=== PATIENT | female | born 1975 | race Caucasian/White ===

== ENCOUNTER 2017-03-16 09:10 | Emergency (ER) | payer OTHER ==
[~2017-03-16] VITALS: Ht 167.6 cm; Wt 99.8 kg
[~2017-03-16 09:10] MED LIST: ADVIL200 M1 PO; MULTIVITAMIN1 TAB PO; NEXIUM 24HR20 MG PO; PROBIOTIC FORM1 EACH PO; ZITHROMAX Z-PA250 M1 PO; ZYRTEC-D 12HR 51 TER PO
[2017-03-16 09:38] LABS: ABSOLUTE BASOPHIL COUNT 0.1 /CUMM (0.0-0.2); ABSOLUTE EOSINOPHIL COUNT 0.2 /CUMM (0.0-0.7); ABSOLUTE GRANULOCYTE CT 9.6 /CUMM (1.4-6.5); ABSOLUTE LYMPH COUNT 4.6 /CUMM (1.2-3.4); ABSOLUTE MONOCYTE COUNT 0.6 /CUMM (0.10-0.60); BASOPHIL % 0.5 % (0.0-2.0); EOSINOPHIL % 1.2 % (0-5); GRANULOCYTE % 63.7 % (42.2-75.2); HEMATOCRIT 42.5 % (37-47); MEAN CORPUSCULAR HGB 29.2 PG (27.0-31.0); MEAN CORPUSCULAR HGB CONC 33.4 G/DL (33.0-37.0); MEAN CORPUSCULAR VOLUME 87.5 FL (81.0-99.0); MEAN PLATELET VOLUME 7.9 FL (7.4-10.4); PLATELET COUNT 314 /CUMM (130-400); RBC DISTRIBUTION WIDTH 14.4 % (11.5-14.5); RED BLOOD CELL CT 4.85 /CUMM (4.20-5.40)
--- NOTE | 2017-03-16 11:11 | ED GI/GU/ABDOMINAL COMPLAINT ---
History of Present Illness General Chief Complaint: Abdominal Pain/Flank Pain Stated Complaint: "SEVERE ABD PAIN, I THINK ITS MY GALLBLADDER" Source: patient, old records Exam Limitations: no limitations Vital Signs & Intake/Output Vital Signs & Intake/Output Vital Signs Date Time Temp Pulse Resp B/P B/P Pulse O2 O2 Flow FiO2 Mean Ox Delivery Rate 03/16 1331 96.4 97 18 133/81 98 Room Air 03/16 1320 99 Room Air 03/16 1123 97.2 97 18 138/85 99 03/16 0920 97.7 107 15 122/86 99 Room Air Room Air Allergies Coded Allergies: Penicillins (Mild, YEAST INFECTION 03/16/17) Reconcile Medications Bacillus Coagulans/Inulin (Probiotic Formula Capsule) 1 BILLION CELL-250 MG CAPSULE 1 TAB PO D HEALTH SUPPLEMENT (Reported) Ibuprofen (Advil) 200 MG CAPSULE 3 TAB PO Q4-6 PRN PRN PAIN SCALE 4-6 ( MODERATE) (Reported) Loratadine/Pseudoephedrine (Claritin-D 12 Hour Tablet) 5 MG-120 MG TAB.ER.12H 1 TAB PO BID ALLERGIES (Reported) Omeprazole 20 MG CAPSULE.DR 1 CAP PO DAILY ACID REFLUX (Reported) Triage Note: PT TO ED FOR C/C OF RUQ ABD PAIN THAT RADIATES AROUND TO THE BACK. PT HAD SIMILAR EPISODE TWO DAYS AGO, AND THEN PAIN SUBSIDED. TODAY AT 0700 PAIN WOKE PT UP OUT OF SLEEP. SOME NAUSEA WITHOUT VOMITING. DENIES S/S. Triage Nurses Notes Reviewed? yes ? N Is pt currently ? No HPI: 41F PMH tubal ligation, obesity presenting with 3 days of intermittent severe RUQ pain. Pain occurring and lasting for several hours then self-resolving, 10/ 10 this morning, woke her up from sleep, not timed with meals. Eats a low fat diet, not on OCP, non-smoker. Has nausea but no vomiting. Denies fever, chills , diarrhea, dysuria, constipation, trauma. No jaundice noted. Normal BM this morning, last meal last night (salmon and broccoli). Past History Travel History Traveled to [place] past 21 day No Medical History Any Pertinent Medical History? 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 No Review of Systems Review of Systems Constitutional: Reports: no symptoms. EENTM: Reports: no symptoms. Respiratory: Reports: no symptoms. Cardiovascular: Reports: no symptoms. GI: Reports: see HPI. Genitourinary: Reports: no symptoms. Musculoskeletal: Reports: no symptoms. Skin: Reports: no symptoms. Neurological/Psychological: Reports: no symptoms. Hematologic/Endocrine: Reports: no symptoms. Immunologic/Allergic: Reports: no symptoms. All Other Systems: Reviewed and Negative Physical Exam Physical Exam General Appearance: well developed/nourished, mild distress Head: atraumatic, normal appearance Eyes: Bilateral: normal appearance. Ears, Nose, Throat, Mouth: moist mucous membrane Neck: normal inspection, full range of motion Respiratory: normal breath sounds, no respiratory distress Cardiovascular: regular rate/rhythm Gastrointestinal: RUQ tenderness Back: normal inspection, normal range of motion Extremities: normal range of motion Neurologic/Psych: awake, alert, oriented x 3, normal mood/affect Skin: intact, normal color, warm/dry Core Measures ACS in differential dx? No Sepsis Present: No Sepsis Focused Exam Completed? No Progress Differential Diagnosis: AAA, AMI, appendicitis, biliary colic, bowel obstruction , colon cancer, cholecystitis, diverticulitis, ectopic , endometritis, esophageal varices, gastritis, hepatitis, hernia, hemorrhoids, ischemic bowel, inflamm bowel dis, intrauterine , kidney stone, [place] tear, ovarian cyst, ovarian torsion, pancreatitis, PID/cervicitis, peptic ulcer, PUD/ GERD, perforated viscous, SBO, threatened AB, UTI/pyelo Plan of Care: Orders Procedure Date/time Status URINALYSIS 03/16 923 Complete LIPASE 03/16 923 Complete COMPREHENSIVE METABOLIC PANEL 03/16 923 Complete CBC WITHOUT DIFFERENTIAL 03/16 923 Complete Current Medications Sig/Kayla Start time Last Medication Dose Stop Time Status Admin Ketorolac 30 MG ONCE ONE 03/16 1145 CAN Tromethamine 03/16 1146 (Toradol) Laboratory Tests 03/16/17 1225: Urine Color YEL, Urine Clarity CLEAR, Urine pH 6.0, Ur Specific [place] 1.025, Urine Protein NEG, Urine Ketones NEG, Urine Nitrite NEG, Urine Bilirubin NEG, Urine Urobilinogen 0.2, Ur Leukocyte Esterase NEG, Ur Microscopic EXAM NOT REQUIRED, Urine Hemoglobin NEG, Urine Glucose NEG 03/16/17 0930: Anion Gap 14, Estimated GFR > 60, BUN/Creatinine Ratio 21.3, Glucose 91, Calcium 9.5, Total Bilirubin 0.3, AST 15, ALT 23, Alkaline Phosphatase 63, Total Protein 7.0, Albumin 4.1, Globulin 2.9, Albumin/Globulin Ratio 1.4, Lipase 218, CBC w Diff NO MAN DIFF REQ, RBC 4.85, MCV 87.5, MCH 29.2, MCHC 33.4, RDW 14.4, MPV 7.9 , Gran % 63.7, Lymphocytes % 30.8, Monocytes % 3.8, Eosinophils % 1.2, Basophils % 0.5, Absolute Granulocytes 9.6 H, Absolute Lymphocytes 4.6 H, Absolute Monocytes 0.6, Absolute Eosinophils 0.2, Absolute Basophils 0.1 Imaging normal. Spoke with Dr. Grace who has no supicion for cholecystitis at this time. Patient will be discharged and follow up in surgery clinic. Radiology Impression: PATIENT: DAVID PEARL PRESENT AGE: 41 PATIENT ACCOUNT NO: [id number] : 77 LOCATION: [facility] ORDERING PHYSICIAN: Nando Maddox MD SERVICE DATE: 03/16/17 EXAM TYPE: CAT - CT ABD & PELVIS W/O IV CONTRAS EXAMINATION: CT ABDOMEN AND PELVIS WITHOUT CONTRAST CLINICAL INFORMATION: 41-year-old woman with intermittent right upper quadrant pain. COMPARISON: 03/16/2017 ultrasound TECHNIQUE: Multidetector volumetric imaging was performed from the superior aspect of the liver through the pubic symphysis. Sagittal and coronal reformatted images were obtained on the technologist's workstation. DLP: 971 mGy-cm FINDINGS: The lung bases are clear. There is diffuse fatty infiltration of the liver. The spleen, pancreas, adrenals, kidneys, and partially contracted gallbladder are normal in their noncontrast appearance. Nondilated loops of large and small bowel are also unremarkable. The appendix and terminal ileum are not inflamed. Hyperdense material in the distal appendix could represent a small appendicolith versus desiccated fecal material. The uterus, adnexal structures, and bladder are normal in appearance. IMPRESSION: No acute intra-abdominal process is seen to explain the patient's symptoms. Diffuse hepatic steatosis. DICTATED BY: Maddy Macias MD DATE/TIME DICTATED:03/16/171335 PRODUCTION COOK:BLANQUITA DATE/TIME TRANSCRIBED:03/16/171335 CONFIDENTIAL, DO NOT COPY WITHOUT APPROPRIATE AUTHORIZATION. <Electronically signed in Other Vendor System> SIGNED BY: Gilberto MCGARRY,Maddy 03/16/17 1344, CLINICAL INFORMATION: Right upper quadrant intermittent pain and positive Vazquez sign. Evaluate for cholecystitis.. COMPARISON: None TECHNIQUE: Real-time imaging of the right upper quadrant abdominal viscera. FINDINGS: PANCREAS: Normal. LIVER: Liver echotexture is increased most likely representing fatty infiltration. No focal liver lesion is seen. The liver appears enlarged measuring 20 cm in length. No intrahepatic biliary duct dilatation. GALLBLADDER: Normal. The gallbladder is physiologically distended without evidence of stones, sludge, polyps, wall thickening or pericholecystic fluid. COMMON BILE DUCT: Normal in caliber measuring 0.4 cm in diameter. RIGHT KIDNEY: Normal. No hydronephrosis. No renal calculi or focal parenchymal lesions. The kidney measures 11.2 cm in maximum dimension. FREE FLUID: None. IMPRESSION: Enlarged echogenic liver probably representing fatty infiltration. Normal-appearing gallbladder. DICTATED BY: Jaun MCGARRY,Lily Liang DATE/TIME DICTATED:03/16/171204 PRODUCTION COOK:BLANQUITA DATE/TIME TRANSCRIBED:03/16/171204 Initial ED EKG: none Departure Departure Disposition: HOME OR SELF CARE Condition: Stable Clinical Impression Primary Impression: Gallstones Secondary Impressions: RUQ pain Referrals: Patient Has No Primary Care Dr (PCP/Family) Additional Instructions: Follow up with outpatient surgery. If you experience fever, chills, persistent pain, nausea/vomiting, or any other new symptoms, return to ER. Do not drive or operate machinery with Tramadol. Departure Forms: Customer Survey General Discharge Information Prescriptions: Current Visit Scripts Tramadol HCl 1 TAB PO Q6P PRN GALLSTONES #10 TAB
--- NOTE | 2017-03-16 12:10 | ULTRASOUND REPORT ---
EXAMINATION: US ABDOMEN LIMITED CLINICAL INFORMATION: Right upper quadrant intermittent pain and positive Vazquez sign. Evaluate for cholecystitis.. COMPARISON: None TECHNIQUE: Real-time imaging of the right upper quadrant abdominal viscera. FINDINGS: PANCREAS: Normal. LIVER: Liver echotexture is increased most likely representing fatty infiltration. No focal liver lesion is seen. The liver appears enlarged measuring 20 cm in length. No intrahepatic biliary duct dilatation. GALLBLADDER: Normal. The gallbladder is physiologically distended without evidence of stones, sludge, polyps, wall thickening or pericholecystic fluid. COMMON BILE DUCT: Normal in caliber measuring 0.4 cm in diameter. RIGHT KIDNEY: Normal. No hydronephrosis. No renal calculi or focal parenchymal lesions. The kidney measures 11.2 cm in maximum dimension. FREE FLUID: None. IMPRESSION: Enlarged echogenic liver probably representing fatty infiltration. Normal-appearing gallbladder.
[2017-03-16] MEDS ORDERED: CLARITIN-D 121 EACH PO (13:29)
[2017-03-16] MEDS ORDERED: OMEPRAZOLE20 M2 PO (13:29)
[2017-03-16 13:31] VITALS: BP 133/81
--- NOTE | 2017-03-16 13:44 | CT SCAN REPORT ---
EXAMINATION: CT ABDOMEN AND PELVIS WITHOUT CONTRAST CLINICAL INFORMATION: 41-year-old woman with intermittent right upper quadrant pain. COMPARISON: 03/16/2017 ultrasound TECHNIQUE: Multidetector volumetric imaging was performed from the superior aspect of the liver through the pubic symphysis. Sagittal and coronal reformatted images were obtained on the technologist's workstation. DLP: 971 mGy-cm FINDINGS: The lung bases are clear. There is diffuse fatty infiltration of the liver. The spleen, pancreas, adrenals, kidneys, and partially contracted gallbladder are normal in their noncontrast appearance. Nondilated loops of large and small bowel are also unremarkable. The appendix and terminal ileum are not inflamed. Hyperdense material in the distal appendix could represent a small appendicolith versus desiccated fecal material. The uterus, adnexal structures, and bladder are normal in appearance. IMPRESSION: No acute intra-abdominal process is seen to explain the patient's symptoms. Diffuse hepatic steatosis.
[2017-03-16] MEDS ORDERED: TRAMADOL HCL50 M1 PO (13:57)
== END 2017-03-16 14:19 ==
LOC: ERH 09:10
PROVIDERS: Emergency Medicine
DX: K80.20 Calculus of gallbladder without cholecystitis without obstruction (principal)
CPT/HCPCS: 74176; 81003; 96372; J1885